=== PATIENT | male | born 1995 | race Caucasian/White ===

== ENCOUNTER 2017-08-02 20:44 | Emergency (ER) | payer SELFPAY ==
[~2017-08-02] VITALS: Ht 167.6 cm; Wt 78.0 kg
[2017-08-03] MEDS ORDERED: TETRACAINE/BENZOCAINE/BUTAMBEN 20 GM SPRAY MM NR (00:30)
[2017-08-03] MEDS ORDERED: LIDOCAINE HCL 1%/EPI 1:200,000 30 ML VIAL MC ONE (00:30)
[2017-08-03] MEDS ORDERED: DEXAMETHASONE 10 MG/ML VIAL IV ONE (00:30)
[2017-08-03] MEDS ORDERED: CEFTRIAXONE 1 G PREMIX 50 ML IV ONE (00:30)
[2017-08-03 00:33] LABS: HEMATOCRIT. 39.6 % (42.0-52.0); HEMOGLOBIN. 13.4 g/dL (14.0-18.0); MEAN CORPUSCULAR HEMOGLOBIN 29.8 pg (28.0-32.0); MEAN CORPUSCULAR VOLUME 87.6 fL (80.0-94.0); MEAN PLATELET VOLUME 9.1 fl (7.4-10.4); PLATELET 197 x1000/uL (130-400); RED BLOOD CELL COUNT 4.51 mill/uL (4.7-6.1); RED CELL DISTRIBUTION WIDTH 13.6 % (11.6-14.6)
[2017-08-03 00:38] LABS: CHLORIDE 100 mEq/L (98-107)
[2017-08-03 00:41] LABS: INR 1.2; PROTHROMBIN TIME 12.2 sec (9.4-11.6)
[2017-08-03 00:44] LABS: CARBON DIOXIDE 25 mEq/L (21-32)
[2017-08-03 01:50] LABS: PLATELET ESTIMATE NORMAL
[2017-08-03 02:56] VITALS: BP 132/61
== END 2017-08-03 04:38 | disposition short-term general hospital (02) ==
LOC: ER 22:15
DX: J36 Peritonsillar abscess (principal)
CPT/HCPCS: 36415; 42700; 80048; 85025; 85610; 87070; 87430; 96365; 96375; 99285; J0696; J1100

== ENCOUNTER 2017-08-14 05:38 | Emergency (ER) | payer SELFPAY ==
[~2017-08-14] VITALS: Ht 172.7 cm; Wt 79.0 kg
[2017-08-14 09:55] VITALS: BP 128/81
[2017-08-14] MEDS ORDERED: IBUPROFEN 400MG TABLET PO ONE (10:00)
== END 2017-08-14 10:03 | disposition home or self-care (01) ==
LOC: ER 05:38
DX: M25.511 Pain in right shoulder (principal); R07.89 Other chest pain; M54.2 Cervicalgia; R51 Headache; V49.40XA Driver injured in collision with unspecified motor vehicles in traffic accident, initial encounter; Y93.89 Activity, other specified; F17.210 Nicotine dependence, cigarettes, uncomplicated; Y92.410 Unspecified street and highway as the place of occurrence of the external cause
CPT/HCPCS: 71111; 73030; 99284

== ENCOUNTER 2018-08-04 10:39 | Emergency (ER) | payer SELFPAY ==
[~2018-08-04] VITALS: Ht 165.1 cm; Wt 86.0 kg
[2018-08-04] MEDS ORDERED: IBUPROFEN 600MG TABLET PO ONE (15:15)
[2018-08-04 16:34] VITALS: BP 119/81
== END 2018-08-04 16:34 | disposition home or self-care (01) ==
LOC: ER 11:16
DX: S63.592A Other specified sprain of left wrist, initial encounter (principal); W51.XXXA Accidental striking against or bumped into by another person, initial encounter; W01.0XXA Fall on same level from slipping, tripping and stumbling without subsequent striking against object, initial encounter; Y93.66 Activity, soccer; Y92.322 Soccer field as the place of occurrence of the external cause
CPT/HCPCS: 29125; 73090; 73110; 99283